=== PATIENT | female | born 1960 | race Caucasian/White ===

== ENCOUNTER 2017-04-27 18:07 | Emergency (ER) | payer SELFPAY ==
[~2017-04-27] VITALS: Ht 152.4 cm; Wt 68.0 kg
[2017-04-27] MEDS ORDERED: VENTOLIN HFA18 GM INH (18:28)
[2017-04-27] MEDS ORDERED: ZITHROMAX250 MG PO (18:31)
== END 2017-04-27 18:46 | disposition home or self-care (01) ==
LOC: ED 18:07
DX: J40 Bronchitis, not specified as acute or chronic (principal); F17.200 Nicotine dependence, unspecified, uncomplicated; Z90.49 Acquired absence of other specified parts of digestive tract; Z87.01 Personal history of pneumonia (recurrent)
CPT/HCPCS: 99283

== ENCOUNTER 2020-08-13 19:02 | Emergency (ER) | payer OTHER ==
[~2020-08-13] VITALS: Ht 152.4 cm; Wt 68.0 kg
[~2020-08-13 19:02] MED LIST: VENTOLIN HFA18 GM INH; ZITHROMAX250 MG PO
--- OUTSIDE RECORDS SUMMARY | 2020-08-13 19:04 | XMS ---
PreManage Notification: YANDEL CLARK Security Rat Exterminator Events No recent Security Events currently on file CRITERIA MET - Group Notification CARE PROVIDERS There are no care providers on record at this time. Kamron has no Care Guidelines for this patient. [place] VISIT COUNT (12 MO.) 1 [facility] Hoffman TOTAL 1 NOTE: Visits indicate total known visits. ED/C VISIT TRACKING (12 MO.) 08/13/2020 19:02 [facility] [place] TYPE: Emergency COMPLAINT: - WEIGHT ON CHEST INPATIENT VISIT TRACKING (12 MO.) No inpatient visits to display in this time frame [email or web address]
[2020-08-13] MEDS ORDERED: K-TAB ER20 MEQ PO (20:24)
--- NOTE | 2020-08-14 07:31 | EKG ---
[facility] [address] [facility] [place], [place] [address] Signed Sinus rhythm with frequent premature ventricular complexes Nonspecific ST and T wave abnormality Prolonged QT Abnormal ECG No previous ECGs available Confirmed by NAMRATA FRAZIER MD ([id number]) on 08/14/2020 7:30:48 AM Electronically Signed By: NAMRATA FRAZIER MD 08/14/20 0731 PATIENT NAME: YANDEL CLARK Electrocardiogram DATE OF : 62 PHYSICIAN: NAMRATA FRAZIER MD REPORT #: [id number] REPORT IS CONFIDENTIAL AND NOT TO BE RELEASED WITHOUT AUTHORIZATION
== END 2020-08-13 21:05 | disposition home or self-care (01) ==
LOC: ED 19:02
DX: R07.9 Chest pain, unspecified (principal); I48.91 Unspecified atrial fibrillation; F17.200 Nicotine dependence, unspecified, uncomplicated; Z88.6 Allergy status to analgesic agent; Z79.899 Other long term (current) drug therapy
CPT/HCPCS: 71045; 80053; 83735; 84443; 84484; 85025; 93005; 93010; 99285-25

== ENCOUNTER 2021-06-16 09:49 | Emergency (ER) | payer OTHER ==
[~2021-06-16] VITALS: Ht 152.4 cm; Wt 71.7 kg
[~2021-06-16 09:49] MED LIST changes: +K-TAB ER20 MEQ PO
--- OUTSIDE RECORDS SUMMARY | 2021-06-16 09:54 | XMS ---
PreManage Notification: YANDEL CLARK Security Manager Universal Events 1 event(s) in the past 18 months Most recent security events: Elopement at [facility] 08/17/2020 15:32 - Other Details: PATIENT LWBS. CRITERIA MET - ED - Positive COVID-19 Lab Result - [facility] - PDMP CARE PROVIDERS LISBETH DELANEY Physician Test And Balance Engineer 08/16/2020-Current PHONE: [phone] Kamron has no Care Guidelines for this patient. [place]hi VISIT COUNT (12 MO.) 3 [facility] TOTAL 3 NOTE: Visits indicate total known visits. ED/UCC VISIT TRACKING (12 MO.) 06/16/2021 09:51 [facility] [place] TYPE: Emergency COMPLAINT: - L ARM/LOWER L LEG NUMBNESS/TINGLING 08/17/2020 15:32 [facility] [place] TYPE: Emergency COMPLAINT: - LOW BLOOD PRESSURE 08/13/2020 19:02 [facility] [place] TYPE: Emergency COMPLAINT: - CHEST PAIN DIAGNOSES: - Nicotine dependence, unspecified, uncomplicated - Other shelter (current) drug therapy - Other chest pain - Allergy status to analgesic agent - Unspecified atrial fibrillation - Chest pain, unspecified INPATIENT VISIT TRACKING (12 MO.) No inpatient visits to display in this time frame [email or web address]
[2021-06-16] MEDS ORDERED: HYDROCODON-ACE1 EA10 PO (11:27)
[2021-06-16] MEDS ORDERED: GENVOYA TABLET1 EACH PO (11:28)
[2021-06-16] MEDS ORDERED: GABAPENTIN300 MG PO (11:28)
[2021-06-16] MEDS ORDERED: CARVEDILOL6.25 MG PO (11:28)
[2021-06-16] MEDS ORDERED: CLOTRIMAZOLE-BE15 GM (11:28)
--- NOTE | 2021-06-18 17:31 | EKG ---
[facility] [address] [facility] [place] [address] Signed Normal sinus rhythm Normal ECG When compared with ECG of 13-AUG-2020 19:18, premature ventricular complexes are no longer present T wave inversion no longer evident in Lateral leads QT has shortened Confirmed by AMADOU BHARDWAJ DO ([id number]) on 06/18/2021 5:31:23 PM Electronically Signed By: AMADOU BHARDWAJ DO 06/18/21 1731 PATIENT NAME: YANDEL CLARK Electrocardiogram DATE OF : 62 PHYSICIAN: AMADOU BHARDWAJ DO REPORT #: [id number] REPORT IS CONFIDENTIAL AND NOT TO BE RELEASED WITHOUT AUTHORIZATION
== END 2021-06-16 15:06 | disposition home or self-care (01) ==
LOC: ED 09:49
DX: R20.2 Paresthesia of skin (principal); Z20.822 Contact with and (suspected) exposure to COVID-19; I48.91 Unspecified atrial fibrillation; F17.200 Nicotine dependence, unspecified, uncomplicated; Z88.6 Allergy status to analgesic agent; Z79.899 Other long term (current) drug therapy
CPT/HCPCS: 70450; 70496; 70498; 70551; 71045; 80053; 85025; 85610; 85730; 93005; 93010; 99284-25; C9803; Q9967; U0003

== ENCOUNTER 2023-04-08 16:09 | Emergency (ER) | payer OTHER ==
[~2023-04-08] VITALS: Ht 152.4 cm; Wt 70.5 kg
[~2023-04-08 16:09] MED LIST changes: +CARVEDILOL6.25 MG PO; +CLOTRIMAZOLE-BE15 GM; +GABAPENTIN300 MG PO; +GENVOYA TABLET1 EACH PO; +HYDROCODON-ACE1 EA10 PO
--- OUTSIDE RECORDS SUMMARY | 2023-04-08 16:13 | XMS ---
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 [place] VISIT COUNT (12 MO.) 1 MARIBEL Hoffman TOTAL 1 NOTE: Visits indicate total known visits. ED/UCC VISIT TRACKING (12 MO.) 04/08/2023 16:09 [facility] TYPE: Emergency COMPLAINT: - SKIN PROBLEM INPATIENT VISIT TRACKING (12 MO.) [facility] Int[facility] Care DIAGNOSES: - Abnormal electrocardiogram [ECG] [EKG] - Acute ischemic heart disease, unspecified - Chest pain, unspecified [email or web address]
[2023-04-08] MEDS ORDERED: ATORVASTATIN CA10 MG PO (17:57)
[2023-04-08] MEDS ORDERED: PRASUGREL HCL10 MG PO (17:57)
[2023-04-08] MEDS ORDERED: DOXYCYCLINE HY100 MG PO (20:27)
[2023-04-08] MEDS ORDERED: HYDROCODON-ACE1 EA10 PO (20:27)
[2023-04-08 20:42] VITALS: BP 139/99
[2023-04-09] MEDS ORDERED: ONDANSETRON ODT8 MG PO (20:44)
== END 2023-04-08 20:42 | disposition home or self-care (01) ==
LOC: ED 16:09
DX: L03.311 Cellulitis of abdominal wall (principal); I10 Essential (primary) hypertension; I25.2 Old myocardial infarction; E78.00 Pure hypercholesterolemia, unspecified; F17.200 Nicotine dependence, unspecified, uncomplicated; Z79.899 Other long term (current) drug therapy
CPT/HCPCS: 10060; 87070; 87205; 99283-25; A9270

== ENCOUNTER 2023-04-09 15:09 | Emergency (ER) | payer OTHER ==
[~2023-04-09] VITALS: Ht 152.4 cm; Wt 70.5 kg
[~2023-04-09 15:09] MED LIST changes: +ATORVASTATIN CA10 MG PO; +DOXYCYCLINE HY100 MG PO; +PRASUGREL HCL10 MG PO
--- OUTSIDE RECORDS SUMMARY | 2023-04-09 15:12 | XMS ---
PreManage Notification: YANDEL CLARK Security Application Design Engineer Events No recent Security Events currently on file CRITERIA MET - [facility] - 2 Visits in 30 Days CARE PROVIDERS LISBETH DELANEY Physician Lime Hide Inspector 08/16/2020-Current PHONE: [phone] Kamron has no Care Guidelines for this patient. Nidhi VISIT COUNT (12 MO.) 2 [facility] TOTAL 2 NOTE: Visits indicate total known visits. ED/UCC VISIT TRACKING (12 MO.) 04/09/2023 15:10 [facility] [place] TYPE: Emergency COMPLAINT: - RT LEG PAIN 04/08/2023 16:09 [facility] [place] TYPE: Emergency COMPLAINT: - SKIN PROBLEM INPATIENT VISIT TRACKING (12 MO.) 11/26/2022 18:22 [facility] ([place]) TYPE: Intensive Care DIAGNOSES: - Abnormal electrocardiogram [ECG] [EKG] - Acute ischemic heart disease, unspecified - Chest pain, unspecified [email or web address]
[2023-04-09 19:41] LABS: BASOPHILS 0.5 % (0-2); EOSINOPHILS 0.9 % (0-6); HEMATOCRIT 34.4 % (35.0-50.0); HEMOGLOBIN 11.5 g/dL (12.0-18.0); LYMPHOCYTES 11.9 % (24-44); MCHC 33.5 g/dl (30-36); MCV 92.4 fl (81-99); MONOCYTES 7.3 % (0-12); NEUTROPHILS 79.4 % (39-80); PLATELET COUNT 266 K/uL (140-440); RBC 3.72 M/ul (4.3-5.7); RDW 13.9 (10.5-15.0)
[2023-04-09 19:54] LABS: ALBUMIN 3.4 g/dL (3.4-5.0); ALBUMIN/GLOBULIN RATIO 0.89 (1.1-2.4); ANION GAP 13.4 (7-21); BILIRUBIN, TOTAL 0.7 ng/dL (0.2-1.0); BUN/CREATININE RATIO 9.21 (6.0-28.6); CREATININE, SERUM 0.76 mg/dL (0.55-1.02); POTASSIUM 3.4 mmol/L (3.5-5.1); PROTEIN, TOTAL 7.2 g/dL (6.4-8.2)
[2023-04-09 19:59] LABS: LACTIC ACID, BLOOD 1.9 mmol/L (0.4-2.0)
[2023-04-09] MEDS ORDERED: ONDANSETRON ODT8 MG PO (20:44)
[2023-04-09 20:45] LABS: BILIRUBIN, URINE NEGATIVE (negative); BLOOD/HGB, URINE MODERATE (Negative); KETONE, URINE NEGATIVE (Negative); LEUK ESTERASE, URINE NEGATIVE (negative); NITRITE, URINE NEGATIVE (negative); PH, URINE 5.5 (5-7)
[2023-04-09 20:50] LABS: EPITHELIAL CELLS, URINE SQUAMOUS 2+ /lpf (0-1+)
[2023-04-09 20:51] LABS: BACTERIA, URINE RARE /hpf (negative); CRYSTALS, URINE NONE SEEN (0-1+); WHITE BLOOD CELLS, URINE 0-1 /HPF (0-5)
[2023-04-09 20:52] LABS: CASTS, URINE NONE SEEN \\lpf; REFLEX CULTURE, URINE No (No)
[2023-04-09 20:59] VITALS: BP 112/80
== END 2023-04-09 21:00 | disposition home or self-care (01) ==
LOC: ED 15:09
PROVIDERS: Emergency Medicine
DX: L03.311 Cellulitis of abdominal wall (principal); D72.829 Elevated white blood cell count, unspecified; F17.200 Nicotine dependence, unspecified, uncomplicated; I10 Essential (primary) hypertension; E78.00 Pure hypercholesterolemia, unspecified; I25.2 Old myocardial infarction; Z79.899 Other long term (current) drug therapy
CPT/HCPCS: 36415; 74177; 80053; 81001; 83605; 83690; 85025; 87040; 99284-25; A9270; J0878; Q9967

== ENCOUNTER 2024-09-05 15:50 | Emergency (ER) | payer OTHER ==
[~2024-09-05] VITALS: Ht 152.4 cm; Wt 75.6 kg
[~2024-09-05 15:50] MED LIST changes: +ONDANSETRON ODT8 MG PO
[2024-09-05 17:35] LABS: BASOPHILS 0.8 % (0-2); EOSINOPHILS 3.1 % (0-6); HEMATOCRIT 38.3 % (35.0-50.0); HEMOGLOBIN 13.3 g/dL (12.0-18.0); LYMPHOCYTES 30.1 % (24-44); MCH 32.5 (27-36); MCHC 34.6 g/dl (30-36); MCV 93.9 fl (81-99); MONOCYTES 9.1 % (0-12); NEUTROPHILS 56.9 % (39-80); PLATELET COUNT 258 K/uL (140-440); RBC 4.08 M/ul (4.3-5.7); RDW 14.7 (10.5-15.0)
[2024-09-05 17:50] LABS: ALBUMIN 3.6 g/dL (3.4-5.0); ALBUMIN/GLOBULIN RATIO 1.06 (1.1-2.4); ANION GAP 15.1 (7-21); BILIRUBIN, TOTAL 0.6 mg/dL (0.2-1.0); BUN/CREATININE RATIO 17.04 (6.0-28.6); CREATININE, SERUM 0.88 mg/dL (0.55-1.02); POTASSIUM 3.1 mmol/L (3.5-5.1)
[2024-09-05] MEDS ORDERED: SODIUM CHLORIDE 0.9% 1,000 ML IV PRN (19:15)
[2024-09-05] MEDS ORDERED: HYDROmorphone HCL 1 MG/ML SYR IV PRN (19:15)
[2024-09-05] MEDS ORDERED: methylPREDNISolone SOD SUCC 125 MG/2 ML VIAL IV ONE (19:15)
[2024-09-05 19:36] VITALS: BP 125/78
--- NOTE | 2024-09-06 15:49 | EKG ---
[facility] [address] [facility] [place] [address] Signed Sinus tachycardia with frequent premature ventricular complexes Possible Inferior infarct , age undetermined Abnormal ECG When compared with ECG of 16-JUN-2021 11:34, premature ventricular complexes are now present Nonspecific T wave abnormality now evident in Anterior leads Confirmed by Jennifer Jung DO ([id number]) on 09/06/2024 3:49:48 PM Electronically Signed By: JENNIFER JUNG DO 09/06/24 1549 PATIENT NAME: YANDEL CLARK Electrocardiogram DATE OF : 62 PHYSICIAN: JENNIFER JUNG DO REPORT #: [id number] REPORT IS CONFIDENTIAL AND NOT TO BE RELEASED WITHOUT AUTHORIZATION
--- NOTE | 2024-09-06 15:50 | EKG ---
[facility] [address] [facility] [place], [place] [address] Signed Sinus rhythm with frequent premature ventricular complexes Possible Inferior infarct (cited on or before 05-SEP-2024) Abnormal ECG When compared with ECG of 05-SEP-2024 17:45, (Unconfirmed) No significant change was found Confirmed by Jennifer Jung DO ([id number]) on 09/06/2024 3:49:57 PM Electronically Signed By: JENNIFER JUNG DO 09/06/24 1550 PATIENT NAME: YANDEL CLARK Electrocardiogram DATE OF : 62 PHYSICIAN: JENNIFER JUNG DO REPORT #: [id number] REPORT IS CONFIDENTIAL AND NOT TO BE RELEASED WITHOUT AUTHORIZATION
== END 2024-09-05 19:38 | disposition home or self-care (01) ==
LOC: ED 15:50
PROVIDERS: Emergency Medicine
DX: G45.9 Transient cerebral ischemic attack, unspecified (principal); I48.91 Unspecified atrial fibrillation; I25.2 Old myocardial infarction; I10 Essential (primary) hypertension; E78.00 Pure hypercholesterolemia, unspecified; F17.200 Nicotine dependence, unspecified, uncomplicated; Z21 Asymptomatic human immunodeficiency virus [HIV] infection status; Z79.82 Long term (current) use of aspirin; Z79.02 Long term (current) use of antithrombotics/antiplatelets; Z79.899 Other long term (current) drug therapy
CPT/HCPCS: 36415; 70450; 80053; 85025; 93005; 93010; 99285-25